=== PATIENT | female | born 1950 | race Caucasian/White ===

== ENCOUNTER 2018-05-20 10:59 | Day surgery (SDC) | payer MEDICARE ==
[2018-05-20] MEDS ORDERED: LACTATED RINGERS 1,000 ML IV ONE (11:27)
[2018-05-20] MEDS ORDERED: MIDAZOLAM 2 MG/2 ML VIAL IVP ONE (12:25)
[2018-05-20] MEDS ORDERED: fentaNYL 250 MCG/5 ML VIAL IVP ONE (12:25)
[2018-05-20 13:26] VITALS: BP 119/80
== END 2018-05-20 11:00 | disposition home or self-care (01) ==
LOC: SDS 10:59
PROVIDERS: ATTEND Surgery
PROC: 0DJD8ZZ Inspection of Lower Intestinal Tract, Via Natural or Artificial Opening Endoscopic (ICD-10-PCS; principal; 2018-05-20 12:15)
DX: Z12.11 Encounter for screening for malignant neoplasm of colon (principal); K62.1 Rectal polyp; K57.30 Diverticulosis of large intestine without perforation or abscess without bleeding; K64.8 Other hemorrhoids; J45.909 Unspecified asthma, uncomplicated; E11.9 Type 2 diabetes mellitus without complications
CPT/HCPCS: G0105; J3010; J7120

== ENCOUNTER 2018-06-10 09:19 | Emergency (ER) | payer MEDICARE ==
[2018-06-10 09:28] VITALS: BP 148/83
[2018-06-10] MEDS ORDERED: DEXAMETHASONE 10 MG/ML VIAL PO STA (11:20)
--- NOTE | 2018-06-10 11:21 | ED Physician Documentation ---
PD HPI URI - Stated complaint Stated Complaint: EYE IRRITATION - Chief complaint Chief Complaint: Heent - History obtained from History obtained from: Patient - History of Present Illness Timing - onset: How many weeks ago (1) Timing duration: Weeks (1) Timing details: Gradual onset, Still present Associated symptoms: Nasal congestion, Rhinorrhea, Productive cough, Dyspnea, Other (eye irritation.) Improves by: Rest Similar symptoms before: Diagnosis (bronchitis), Other Recently seen: Not recently seen - Additional information Additional information: 67-year-old female is developed a cough and congestion about a week ago she is also developed swelling to her eyes with some redness associated with this. She has had this happen to her eyes previously and she did use some drops with it but this did not seem to help that at all and it eventually resolved. She does not usually have swelling to her eyelids and she feels that they are itchy watery and there is no change to her vision. Review of Systems Constitutional: reports: Fatigue, Sweats. denies: Fever Eyes: reports: Irritation. denies: Loss of vision, Decreased vision, Photophobia Ears: denies: Ear pain Nose: reports: Rhinorrhea / runny nose, Congestion. denies: Sinus pressure / pain Throat: denies: Sore throat Cardiac: denies: Chest pain / pressure, Palpitations Respiratory: reports: Dyspnea, Cough, Wheezing GI: denies: Abdominal Pain, Nausea, Vomiting : denies: Dysuria, Frequency PD PAST MEDICAL HISTORY - Past Medical History Past Medical History: Yes Cardiovascular: High cholesterol Respiratory: Asthma Endocrine/Autoimmune: None, Other GI: Colon polyps : None HEENT: None Musculoskeletal: None - Past Surgical History Past Surgical History: Yes General: Colonoscopy HEENT: Tonsil/Adenoidectomy, Other - Present Medications Home Medications: Ambulatory Orders Medication Instructions Recorded Confirmed Atorvastatin [Lipitor] 40 mg PO DAILY 05/17/18 05/20/18 Citalopram Hydrobromide [Celexa] 20 mg PO DAILY 05/17/18 05/20/18 Loratadine [Allergy Relief] 20 mg PO DAILY 05/17/18 Azithromycin [Zithromax] 250 mg PO DAILY #6 tablet 06/10/18 Neomycin/Poly/Dex Ophth Drops 1 drops EACHEYE QID #1 bottle 06/10/18 [Maxitrol Ophth Drops] - Allergies Allergies/Adverse Reactions: Allergies Allergy/AdvReac Type Severity Reaction Status Date / Time No Known Drug Allergies Allergy Verified 06/10/18 09:28 - Social History Does the pt smoke?: No Smoking Status: Never smoker Does the pt drink ETOH?: Yes ETOH Use: Wine Does the pt have substance abuse?: No - Immunizations Immunizations are current?: Yes PD ED PE NORMAL - Vitals Vital signs reviewed: Yes (hypertensive ) - General General: Alert and oriented X 3, No acute distress, Well developed/nourished - HEENT HEENT: Atraumatic, PERRL, EOMI, Ears normal, Moist mucous membranes, Pharynx benign, Dentition benign, Other (There is obvious erythema to both upper and lower eyelids and scleral injection. The appearnce is that of a dramatic amount of blepharitis. ) - Neck Neck: Supple, no meningeal sign, No bony TTP - Cardiac Cardiac: RRR, No murmur - Respiratory Respiratory: No respiratory distress, Other (Scattered wheezes and light rhonchi in the right base. 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, No motor deficit, No sensory deficit, Normal speech Eye Opening: Spontaneous Motor: Obeys Commands Verbal: Oriented GCS Score: 15 - Psych Psych: Normal mood, Normal affect Results - Vitals Vitals: Vital Signs - 24 hr 06/10/18 09:26 Temperature 35.7 C L Heart Rate 82 Respiratory 16 Rate Blood Pressure 148/83 H O2 Saturation 98 Oxygen O2 Source Room air - Rads (name of study) 2 veiw chest Radiology: Prelim report reviewed (Impression: No focal pulmonary opacity or other acute cardiopulmonary abnormality.), EMP read indepedently, See rad report PD MEDICAL DECISION MAKING - ED course Complexity details: reviewed results, re-evaluated patient, considered differential, d/w patient, d/w family ED course: 67-year-old female with a dramatic appearing blepharitis has cough and congestion productive of yellow phlegm and she does not appear to have infiltrate on her chest x-ray. She does have rhonchi in the right base and here in the emergency department she is administered dexamethasone 10 mg orally and we will place her on some Maxitrol I draped drops and some azithromycin. - Sepsis Event Vital Signs: Vital Signs - 24 hr 06/10/18 09:26 Temperature 35.7 C L Heart Rate 82 Respiratory 16 Rate Blood Pressure 148/83 H O2 Saturation 98 Oxygen O2 Source Room air Departure - Departure Disposition: 01 Home, Self Care Clinical Impression: Bronchitis Blepharitis of both eyes Qualifiers: Blepharitis type: unspecified type Eyelid: both upper and lower Qualified Code( s): H01.001 - Unspecified blepharitis right upper eyelid; H01.002 - Unspecified blepharitis right lower eyelid; H01.002 - Unspecified blepharitis right lower eyelid; H01.004 - Unspecified blepharitis left upper eyelid; H01.004 - Unspecified blepharitis left upper eyelid; H01.005 - Unspecified blepharitis left lower eyelid; H01.005 - Unspecified blepharitis left lower eyelid Condition: Stable Instructions: ED Upper Resp Infec Abx Tx, ED Inflammation Eyelid Follow-Up: PETE AU MD [Primary Care Provider] - Prescriptions: Azithromycin [Zithromax] 250 mg PO DAILY #6 tablet Neomycin/Poly/Dex Ophth Drops [Maxitrol Ophth Drops] 1 drops EACHEYE QID #1 bottle
--- NOTE | 2018-06-10 12:10 | XRAY Report ---
Reason: R mid lung rhonchi Procedure Date: 06/10/2018 Accession Number: [id number] / [id number] Procedure: XR - Chest 2 View X-Ray CPT Code: 93732 FULL RESULT: EXAM: CHEST RADIOGRAPHY EXAM DATE: 06/10/2018 11:40 AM. CLINICAL HISTORY: R mid lung rhonchi. COMPARISON: None. TECHNIQUE: 2 views. FINDINGS: Lungs/Pleura: No focal opacities evident. No pleural effusion. No pneumothorax. Normal volumes. Mediastinum: Heart and mediastinal contours are unremarkable. There is mild atherosclerotic calcification of the aortic arch. Other: There are mild degenerative changes of the thoracic spine. No acute osseous abnormality. IMPRESSION: No focal pulmonary opacity or other acute cardiopulmonary abnormality. RADIA
== END 2018-06-10 12:40 | disposition home or self-care (01) ==
LOC: ED 09:19
DX: J40 Bronchitis, not specified as acute or chronic (principal); H01.001 Unspecified blepharitis right upper eyelid; H01.002 Unspecified blepharitis right lower eyelid; H01.004 Unspecified blepharitis left upper eyelid; H01.005 Unspecified blepharitis left lower eyelid
CPT/HCPCS: 71046; 99282; 99283

== ENCOUNTER 2021-12-28 12:27 | Outpatient (CLI) | payer MEDICARE ==
--- NOTE | 2021-12-28 13:59 | XRAY Report ---
PROCEDURE: Shoulder 3 View RT INDICATIONS: PAIN OF RIGHT SHOULDER JOINT TECHNIQUE: 4 views of the shoulder were acquired. COMPARISON: None. FINDINGS: Bones: No fractures or dislocations. Mild to moderate acromioclavicular joint osteoarthritis is see n. No suspicious bony lesions. Visualized ribs appear intact. Soft tissues: No suspicious soft tissue calcifications. 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 No fracture or dislocatio n. No gross soft tissue abnormality. Reviewed by: Iglesia Soto MD on 12/28/2021 1:58 PM PDT Approved by: Iglesia Soto MD on 12/28/2021 1:58 PM PDT Station ID: [id number]
== END 2021-12-28 12:28 | disposition home or self-care (01) ==
LOC: DI.S 12:27
PROVIDERS: ATTEND Nurse Practitioner Family
DX: M19.011 Primary osteoarthritis, right shoulder (principal)

== ENCOUNTER 2023-04-04 07:04 | Outpatient (CLI) | payer MEDICARE, OTHER ==
[2023-04-04 14:35] LABS: BASOPHILS % (AUTO) 0.7 %; EOSINOPHILS % (AUTO) 1.7 %; HCT - HEMATOCRIT 39.4 % (37.0-47.0); HGB - HEMOGLOBIN 12.5 g/dL (12.0-16.0); LYMPHOCYTES % (AUTO) 77.5 %; MEAN CORPUSCULAR HEMOGLOBIN 29.9 pg (27.0-31.0); MEAN CORPUSCULAR HGB CONC 31.7 g/dL (32.0-36.0); MEAN CORPUSCULAR VOLUME 94.3 fL (81.0-99.0); MEAN PLATELET VOLUME 10.3 fL (7.9-10.8); MONOCYTES % (AUTO) 6.2 %; NEUTROPHILS % (AUTO) 13.7 %; PLT - PLATELET COUNT 241 10^3/uL (130-450); RED BLOOD COUNT 4.18 10^6/uL (4.20-5.40); RED CELL DISTRIBUTION WIDTH 12.8 % (12.0-15.0); WHITE BLOOD COUNT 8.8 x10^3/uL (4.8-10.8)
[2023-04-04 14:40] LABS: SLIDE REVIEW? Indicated
[2023-04-04 14:41] LABS: ABNORMAL LYMPHS % (MANUAL) 0 %; BAND NEUTROPHILS % (MANUAL) 0 %
[2023-04-04 14:50] LABS: ALBUMIN 3.2 g/dL (3.2-5.5); ALBUMIN/GLOBULIN RATIO 0.5 (1.0-2.2); BILIRUBIN,TOTAL 0.3 mg/dL (0.2-1.0); CALCIUM 9.4 mg/dL (8.5-10.3); CREATININE 0.8 mg/dL (0.4-1.0); TOTAL PROTEIN 10.1 g/dL (6.7-8.2)
[2023-04-04 15:00] LABS: CREATININE,URINE 45.1 mg/dL; MICROALBUM/CREATININE RATIO,UR 11.1 ug/mg (<30.0); MICROALBUMIN,URINE 0.5 mg/dL (0-300.0)
[2023-04-04 15:16] LABS: BASOPHILS # (MANUAL) 0.1 10^3/uL (0-0.1); BASOPHILS % (MANUAL) 1 %; DIFFERENTIAL COMMENT MANUAL DIFFERENTIAL; LYMPHOCYTES % (MANUAL) 80 %; MONOCYTES # (MANUAL) 0.5 10^3/uL (0.0-1.0); NEUTROPHILS # (MANUAL) 1.1 10^3/uL (1.5-6.6); PLATELET ESTIMATE, MANUAL NORMAL (130-450,000) (NORMAL); PLATELET MORPHOLOGY NORMAL APPEARANCE (NORMAL); RBC MORPHOLOGY (MULTIPLE) NORMAL APPEARANCE (NORMAL)
[2023-04-06 19:07] LABS: A/G RATIO 0.5 (0.7-1.7); ALBUMIN 3.3 g/dL (2.9-4.4); ALPHA-1-GLOBULIN 0.2 g/dL (0.0-0.4); ALPHA-2-GLOBULIN 0.9 g/dL (0.4-1.0); BETA GLOBULIN 1.2 g/dL (0.7-1.3); GAMMA GLOBULIN 4.1 g/dL (0.4-1.8); GLOBULIN, TOTAL 6.5 g/dL (2.2-3.9); IMMUNOGLOBULIN A 549 mg/dL (64-422); IMMUNOGLOBULIN G 4108 mg/dL (586-1602); IMMUNOGLOBULIN M 112 mg/dL (26-217); PROTEIN TOTAL 9.8 g/dL (6.0-8.5)
== END 2023-04-04 07:05 | disposition home or self-care (01) ==
LOC: LAB.S 07:04
PROVIDERS: ATTEND Nurse Practitioner Family
DX: E88.09 Other disorders of plasma-protein metabolism, not elsewhere classified (principal); Z90.49 Acquired absence of other specified parts of digestive tract; E11.9 Type 2 diabetes mellitus without complications
CPT/HCPCS: 36415; 80053; 82043; 82570; 82784; 84155; 84165; 85025; 86334

== ENCOUNTER 2023-04-17 08:48 | Outpatient (CLI) | payer MEDICARE, OTHER ==
[2023-04-18 19:07] LABS: SJOGREN'S ANTI-SS-A <0.2 AI (0.0-0.9); SJOGREN'S ANTI-SS-B <0.2 AI (0.0-0.9)
[2023-04-19 16:08] LABS: ANTINUCLEAR ANTIBODIES IFA Negative (.)
== END 2023-04-17 08:49 | disposition home or self-care (01) ==
LOC: LAB 08:48
PROVIDERS: ATTEND Nurse Practitioner
DX: R21 Rash and other nonspecific skin eruption (principal)
CPT/HCPCS: 36415; 85651; 86038; 86140; 86235

== ENCOUNTER 2023-05-01 13:38 | Outpatient (CLI) | payer MEDICARE, OTHER ==
--- NOTE | 2023-05-02 11:07 | XRAY Report ---
PROCEDURE: Hip w/Pelvis 2-3V RT INDICATIONS: DEGENERATION OF LUMBAR INTERVERTEBRAL DISC TECHNIQUE: AP pelvis with lateral view(s) of the right hip(s). COMPARISON: None. FINDINGS: Bones: No fractures or dislocations. No suspicious bony lesions. Mild bilateral hip joint space n arrowing and spurring. Soft tissues: No suspicious soft tissue calcifications . IMPRESSION: No acute bony abnormality. Degenerative changes of both hips. Reviewed by: Claudy Valentine MD on 05/02/2023 11:06 AM PDT Approved by: Claudy Valentine MD on 05/02/2023 11:06 AM PDT Station ID: [id number]
== END 2023-05-01 13:39 | disposition home or self-care (01) ==
LOC: DI.S 13:38
PROVIDERS: ATTEND Nurse Practitioner Family
DX: M16.0 Bilateral primary osteoarthritis of hip (principal)

== ENCOUNTER 2023-05-11 10:20 | Outpatient (CLI) | payer MEDICARE, OTHER | END 2023-05-11 10:21 | disposition home or self-care (01) | LOC: LAB.S 10:20 | PROVIDERS: ATTEND Registered Nurse | DX: M54.50 Low back pain, unspecified (principal) | CPT/HCPCS: 36415; 85651; 86140 ==

== ENCOUNTER 2023-05-12 08:27 | Outpatient (CLI) | payer MEDICARE, OTHER | END 2023-05-12 08:28 | disposition home or self-care (01) | LOC: LAB 08:27 | PROVIDERS: ATTEND Registered Nurse | DX: M54.50 Low back pain, unspecified (principal) | CPT/HCPCS: 36415; 85651 ==

== ENCOUNTER 2023-07-05 09:43 | Outpatient (CLI) | payer MEDICARE, OTHER ==
--- NOTE | 2023-07-05 14:48 | DEXA Report ---
PROCEDURE: Dexa Spine and/or Hip INDICATIONS: POST MENOPAUSAL TECHNIQUE: Dual energy x-ray absorptiometry (DEXA) was performed in the regions detailed below. COMPARISON: None. FINDINGS: Lumbar Spine: Bone Mineral Density 1.286 g/cm/cm,T score 0.9. Normal Left Femoral Neck: Bone Mineral Density 0.894 g/cm/cm, T score -1.0. Low normal Left Hip: Bone Mineral Density 1.003 g/cm/cm,T score 0.0. Normal (T score greater or equal to -1.0: NORMAL) (T score from -1.1 to -2.4: OSTEOPENIA) (T score less than or equal to -2.5 to: OSTEOPOROSIS) IMPRESSION: Normal bone mineralization Patients with diagnosis of osteoporosis or osteopenia should have regular bone mineral density assess ment. For those eligible for Medicare, routine testing is allowed once every 2 years. Testing frequ ency can be increased for patients who have rapidly progressing disease or for those who are receivin g medical therapy to restore bone mass. Reviewed by: Bill Roberto MD on 07/05/2023 1:47 PM [place] Approved by: Bill Roberto MD on 07/05/2023 1:47 PM AL Station ID: [id number]
== END 2023-07-05 09:44 | disposition home or self-care (01) ==
LOC: DI 09:43
PROVIDERS: ATTEND Nurse Practitioner Family
DX: Z78.0 Asymptomatic menopausal state (principal)

== ENCOUNTER 2023-09-01 13:30 | Outpatient (CLI) | payer MEDICARE, OTHER | END 2023-09-01 13:31 | disposition home or self-care (01) | LOC: LAB.S 13:30 | PROVIDERS: ATTEND Physician Assistant Medical | DX: N39.0 Urinary tract infection, site not specified (principal) | CPT/HCPCS: 87077; 87086; 87181 ==

== ENCOUNTER 2024-02-05 10:32 | Outpatient (CLI) | payer MEDICARE, OTHER ==
[2024-02-05 15:28] LABS: BASOPHILS % (AUTO) 0.4 %; EOSINOPHILS % (AUTO) 0.9 %; HGB - HEMOGLOBIN 12.6 g/dL (12.0-16.0); LYMPHOCYTES % (AUTO) 85.4 %; MEAN CORPUSCULAR HEMOGLOBIN 31.2 pg (27.0-31.0); MEAN CORPUSCULAR HGB CONC 31.5 g/dL (32.0-36.0); MEAN PLATELET VOLUME 11.5 fL (7.9-10.8); MONOCYTES % (AUTO) 1.8 %; NEUTROPHILS % (AUTO) 11.4 %; PLT - PLATELET COUNT 202 10^3/uL (130-450); RED BLOOD COUNT 4.04 10^6/uL (4.20-5.40); RED CELL DISTRIBUTION WIDTH 14.3 % (12.0-15.0); WHITE BLOOD COUNT 23.4 x10^3/uL (4.8-10.8)
[2024-02-05 15:41] LABS: ABNORMAL LYMPHS % (MANUAL) 0 %; BAND NEUTROPHILS % (MANUAL) 0 %
[2024-02-05 17:17] LABS: LYMPHOCYTES # (MANUAL) 20.6 10^3/uL (1.5-3.5); LYMPHOCYTES % (MANUAL) 88 %; MONOCYTES # (MANUAL) 0.5 10^3/uL (0.0-1.0); NEUTROPHILS # (MANUAL) 2.3 10^3/uL (1.5-6.6)
[2024-02-05 17:19] LABS: PLATELET ESTIMATE, MANUAL NORMAL (130-450,000) (NORMAL); PLATELET MORPHOLOGY 1+ LARGE PLATELETS (NORMAL); RBC MORPHOLOGY (MULTIPLE) NORMAL APPEARANCE (NORMAL)
[2024-02-05 17:21] LABS: DIFFERENTIAL COMMENT MANUAL DIFFERENTIAL; WBC MORPHOLOGY (MULTIPLE) NORMAL APPEARANCE (NORMAL)
== END 2024-02-05 10:33 | disposition home or self-care (01) ==
LOC: LAB.S 10:32
PROVIDERS: ATTEND Ophthalmology
DX: H21.01 Hyphema, right eye (principal)
CPT/HCPCS: 36415; 85025

== ENCOUNTER 2024-04-04 12:13 | Outpatient (CLI) | payer MEDICARE, OTHER ==
[2024-04-05 19:08] LABS: SJOGREN'S ANTI-SS-B <0.2 AI (0.0-0.9)
== END 2024-04-04 12:14 | disposition home or self-care (01) ==
LOC: LAB.S 12:13
PROVIDERS: ATTEND Psychiatry & Neurology Neurology
DX: R53.1 Weakness (principal)
CPT/HCPCS: 36415; 86235

== ENCOUNTER 2024-06-17 16:31 | Outpatient (CLI) | payer MEDICARE, OTHER ==
[2024-06-17 16:44] LABS: BASOPHILS % (AUTO) 0.6 %; EOSINOPHILS % (AUTO) 1.3 %; HCT - HEMATOCRIT 42.1 % (37.0-47.0); HGB - HEMOGLOBIN 13.6 g/dL (12.0-16.0); LYMPHOCYTES % (AUTO) 76.9 %; MEAN CORPUSCULAR HEMOGLOBIN 30.9 pg (27.0-31.0); MEAN CORPUSCULAR HGB CONC 32.3 g/dL (32.0-36.0); MEAN CORPUSCULAR VOLUME 95.7 fL (81.0-99.0); MEAN PLATELET VOLUME 10.6 fL (7.9-10.8); MONOCYTES % (AUTO) 3.7 %; NEUTROPHILS % (AUTO) 17.4 %; PLT - PLATELET COUNT 255 10^3/uL (130-450); RED CELL DISTRIBUTION WIDTH 13.5 % (12.0-15.0); WHITE BLOOD COUNT 15.8 x10^3/uL (4.8-10.8)
[2024-06-17 16:47] LABS: ABNORMAL LYMPHS % (MANUAL) 0 %; BAND NEUTROPHILS % (MANUAL) 0 %
[2024-06-17 16:59] LABS: ALBUMIN 4.4 g/dL (3.2-5.5); ALBUMIN/GLOBULIN RATIO 1.1 (1.0-2.2); BILIRUBIN,TOTAL 0.4 mg/dL (0.2-1.0); CALCIUM 10.1 mg/dL (8.5-10.3); CREATININE 0.9 mg/dL (0.6-1.3); POTASSIUM 4.6 mmol/L (3.5-4.5); TOTAL PROTEIN 8.4 g/dL (6.4-8.9)
[2024-06-17 17:10] LABS: BASOPHILS # (MANUAL) 0.3 10^3/uL (0-0.1); BASOPHILS % (MANUAL) 2 %; LYMPHOCYTES # (MANUAL) 13.3 10^3/uL (1.5-3.5); LYMPHOCYTES % (MANUAL) 84 %; MONOCYTES # (MANUAL) 0.3 10^3/uL (0.0-1.0); NEUTROPHILS # (MANUAL) 1.9 10^3/uL (1.5-6.6)
[2024-06-17 17:11] LABS: DIFFERENTIAL COMMENT MANUAL DIFFERENTIAL; PLATELET ESTIMATE, MANUAL NORMAL (130-450,000) (NORMAL); PLATELET MORPHOLOGY NORMAL APPEARANCE (NORMAL); RBC MORPHOLOGY (MULTIPLE) NORMAL APPEARANCE (NORMAL)
== END 2024-06-17 16:32 | disposition home or self-care (01) ==
LOC: LAB 16:31
DX: C91.10 Chronic lymphocytic leukemia of B-cell type not having achieved remission (principal)
CPT/HCPCS: 36415; 80053; 85025